=== PATIENT | male | born 1995 | race Two or more races ===

== ENCOUNTER 2024-12-27 12:39 | Emergency (ER) | payer MEDICARE, MEDICAID, SELFPAY ==
[2024-12-27 13:48] VITALS: BP 138/92; PULSE 93; RESP 18; TEMP 36.7; O2SAT 98
--- NOTE | 2024-12-27 13:54 | PD.EDADULT ---
ED General RME/HPI General Chief complaint: Abdominal Pain Stated complaint: ABD PAIN X 10 HRS Time Seen by Provider: 12/27/24 13:43 Arrival date/time: 12/27/24 12:39 CC: Epigastric pain HPI onset last night with nausea and vomiting however has had this chronically ongoing for the past 7 no months is not aware that he has gallstones. Denies fever but complains of persistent nausea vomiting no diarrhea. Related Data Home Medications ?Medication ?Instructions ?Recorded ?Confirmed furosemide 20 mg tablet 20 mg PO BID 06/17/22 06/21/22 hydroxyzine HCl 25 mg tablet 25 mg PO Q6HR PRN Anxiety 06/17/22 06/21/22 metoprolol succinate 25 mg 25 mg PO DAILY 06/17/22 06/21/22 tablet,extended release 24 hr spironolactone 25 mg tablet 25 mg PO DAILY 06/17/22 06/21/22 Previous Rx's ?Medication ?Instructions ?Recorded nitrofurantoin 100 mg PO QID #20 caps 06/23/22 monohydrate/macrocrystals 100 mg capsule (Macrobid) empagliflozin 10 mg tablet 10 mg PO QDAY #30 tabs 06/30/22 (Jardiance) ondansetron HCl 4 mg tablet 4 mg PO TID PRN nausea and 07/05/22 vomiting #20 tabs methocarbamol 750 mg tablet 750 mg PO TID #14 tabs 08/22/22 naproxen 500 mg tablet 500 mg PO BID #10 tabs 08/22/22 ibuprofen 800 mg tablet 800 mg PO TID PRN pain #30 tabs 02/06/23 amoxicillin 875 mg-potassium 1 tab PO BID #20 tabs 05/31/23 clavulanate 125 mg tablet erythromycin 5 mg/gram (0.5 %) eye 0.5 inch ophthalmic (eye) QID #3.5 05/31/23 ointment grams rizatriptan 10 mg disintegrating See Rx Instructions PO .COMPLEX 06/29/23 tablet (Maxalt-[employer]) #30 tabs ondansetron 4 mg disintegrating 4 mg PO Q8H #10 tabs 12/27/24 tablet sucralfate 1 gram tablet (Carafate) 1 g PO BID #20 tabs 12/27/24 Allergies Allergy/AdvReac Type Severity Reaction Status Date / Time No Known Allergies Allergy Verified 12/27/24 12:42 Review of Systems Review of Systems Narrative Review of Systems: GEN: No fever, no chills, no weight loss EYES: No discharge, no visual changes, no pain HEENT: No ear pain, no congestion, no sore throat PULM: No shortness of breath, no cough, no congestion CV: No chest pain, no dyspnea on exertion, no palpitations GI: No nausea, no vomiting, no diarrhea, + pain, no constipation : No frequency, no urgency, no dysuria MUSC/SKEL: No joint pain, no back pain SKIN: No rash PSYCH: No hallucinations, no depression HEME/LYMPH: No easy bleeding or bruising tendencies NEURO: No weakness, no headache Past Medical History Past Medical History NEUROLOGIC: Negative Head Trauma CARDIAC: Positive Cardiac Disorders (CHF); Negative Congestive Heart Failure RESPIRATORY: Negative Chronic Obstructive Pulmonary Disease (COPD) or Asthma GASTROINTESTINAL: Positive Cirrhosis; Negative Gastrointestinal Disorders GENITOURINARY: Negative Renal Disease or Kidney Stones ENT: Negative Head Trauma ENDOCRINE: Negative Diabetes Mellitus Type 1 or Diabetes Mellitus Type 2 HEMATOLOGIC: Negative Blood Disorders or Sickle Cell Disease OTHER HISTORY: Negative MRSA or Cancer Family History FAMILY HISTORY: Negative Family Cardiac Disorders Social History SMOKING STATUS: Current every day smoker ED Exam Narrative Physical exam: [General: Obese in mild discomfort but not in any acute distress Head normocephalic HEENT: Within acceptable limits Neck is supple nontender Chest equal chest rise nontender to palpation Respiratory: Clear to auscultation no wheezes crackles or rubs CV: Rate rhythm is regular no murmurs rubs or clicks Abdomen is distended secondary to body habitus soft epigastric and right upper quadrant tenderness no left upper quadrant tenderness with palpation no reflexive guarding or rebound tenderness. Back: No CVA tenderness no spinous process tenderness from cervical spine thoracic and lumbar spine Skin: Intact no petechiae rash induration ulceration or crepitus Extremities: Moving all extremity against resistance cap refill less than 2 seconds neurosensory intact Neuro: Awake alert oriented x3 Glascow coma 15 no focal deficits] Course Quality Measures none Orders Category Date Time Status gall bladder Stat Exams 12/27/24 13:56 Completed B-Type Natriuretic Peptide Stat Lab 12/27/24 14:17 Completed CBC Stat Lab 12/27/24 14:17 Completed Comprehensive Metabolic Panel Stat Lab 12/27/24 14:17 Completed Drug Screen,Urine Stat Lab 12/27/24 14:40 Completed Lipase Stat Lab 12/27/24 14:17 Completed Magnesium Stat Lab 12/27/24 14:17 Completed Partial Thromboplastin Time Stat Lab 12/27/24 14:17 Completed Prothrombin Time with INR Stat Lab 12/27/24 14:17 Completed Urinalysis, C/S if Indicated Stat Lab 12/27/24 14:40 Completed oxyCODONE/APAP 5/325 [Percocet 5/325] Med 12/27/24 15:09 Discontinued 1 tab PO X1 ONE Vital Signs Vital signs: Vital Signs Temperature 98.0 F 12/27/24 13:48 Pulse Rate 93 12/27/24 13:48 Respiratory Rate 18 12/27/24 13:48 Blood Pressure 138/92 H 12/27/24 13:48 Pulse Oximetry (%) 98 12/27/24 13:48 Oxygen Delivery Method Room Air 12/27/24 13:48 Discharge Plan Plan Patient Disposition: HOME (Self Care) Patient condition on transfer: Stable Prescriptions/Referrals Prescriptions/Med Rec: New ondansetron 4 mg tablet,disintegrating 4 mg PO Q8H Qty: 10 0RF sucralfate [Carafate] 1 gram tablet 1 g PO BID Qty: 20 0RF No Action rizatriptan [Maxalt[employer]] 10 mg tablet,disintegrating See Rx Instructions .ROUTE .COMPLEX Qty: 30 0RF Rx Instructions: take 1 tab at onset of headache; if no relief may repeat 1 tab after at least 2 hrs; max = 3 tabs/24 hr metoprolol succinate 25 mg tablet extended release 24 hr 25 mg PO DAILY furosemide 20 mg tablet 20 mg PO BID hydroxyzine HCl 25 mg tablet 25 mg PO Q6HR PRN (Reason: Anxiety) spironolactone 25 mg tablet 25 mg PO DAILY nitrofurantoin monohyd/m-cryst [Macrobid] 100 mg capsule 100 mg PO QID Qty: 20 0RF Rx Instructions: must administer with a meal/food Jardiance 10 mg tablet 10 mg PO QDAY Qty: 30 3RF ondansetron HCl 4 mg tablet 4 mg PO TID PRN (Reason: nausea and vomiting) Qty: 20 0RF naproxen 500 mg tablet 500 mg PO BID Qty: 10 0RF methocarbamol 750 mg tablet 750 mg PO TID Qty: 14 0RF ibuprofen 800 mg tablet 800 mg PO TID PRN (Reason: pain) Qty: 30 0RF erythromycin 5 mg/gram (0.5 %) ointment 0.5 inch ophthalmic (eye) QID Qty: 3.5 0RF amoxicillin-pot clavulanate 875-125 mg tablet 1 tab PO BID Qty: 20 0RF Referrals: Deshawn Davalos [Primary Care Provider] - In 1 week Problem List Clinical Impression: Abdominal pain, epigastric, Cholelithiasis Patient/Caregiver Discharge Instructions Education Materials: What Are Gallstones, Treating Gallstones Additional Instructions: Take the medications as prescribed avoid greasy spicy and fatty foods avoid eating food 2 hours before you go to bed. You have gallstones but your gallbladder is not infected. Your your blood work does not indicate an infection or any gross abnormalities. Follow-up with your primary care doctor. If there is a worsening of symptoms in spite of the medications and recommendations to return to the emergency room for reevaluation. Print Language: Ukrainian Stand Alone Forms: [employer] Info., Work/School Release, Patient Portal Info Letter ANISH/NIKI Supervising Physician PA/NIKI Supervising Physician: Andi Gillis ENP [facility] Clinical Information Provided by: patient Medical Records reviewed [facility] Meds/Rx considered, not ordered None Labs/Rad/Tests considered, not ordered None Chronic Illness/Social Conditions Explain: Cholelithiasis EKG EKG not done Labs Labs: interpreted by [facility] Lab(s) Interpretation(s): CBC shows no acute leukocytosis anemia thrombocytopenia Coags within acceptable limits CMP shows no significant electrolyte imbalances renal impairment no T. bili elevation. AST at 150 ALT at 99 BMP within acceptable limits Lipase at 57 Imaging Imaging interpretation: interpreted by [facility] Imaging Interpretation(s): Ultrasound shows gallstones without CBD dilatation gallbladder wall thickening that would suggest cholecystitis Medication Administration(s) Medication Administration History Discontinued Medications Oxycodone/Acetaminophen (Oxycodone/Apap 5/325 Tablet) 1 tab PO X1 ONE Stop: 12/27/24 15:10 Last Admin: 12/27/24 15:52 Dose: 1 tab Documented By: DEBI
--- NOTE | 2024-12-27 13:56 | XR_ITS ---
Examination: Abdomen sonogram, Limited Date and time of exam: December 27, 2024, 1438 hours INDICATIONS: Right upper abdominal pain epigastric pain beginning today. Technique: Real-time rodriguez scale transabdominal sonographic images of the upper abdomen obtained. Findings: Cholelithiasis, negative for cholecystitis. Normal common bile duct 0.3 cm Pancreatic head 2.9 cm Liver 17.6 cm fatty infiltration no focal liver lesions. Normal hepatopetal portal venous flow. Patent IVC. IMPRESSION: Cholelithiasis, negative for cholecystitis Moderate hepatomegaly
[2024-12-27 14:34] LABS: Basophils # (Auto) 0.1 Thou/mm3 (0.0-0.2); Basophils % (Auto) 2 % (0-2.5); Eosinophils # (Auto) 0.3 Thou/mm3 (0.0-0.5); Eosinophils % (Auto) 5 % (0-10); Hematocrit 41.9 % (41.0-53.0); Hemoglobin 13.3 g/dL (13.5-16.0); Immature Granulocytes Auto 0.01 Thou/mm3 (0.00-0.00); Lymphocytes # (Auto) 1.7 Thou/mm3 (1.0-4.8); Lymphocytes % (Auto) 28 % (10-50); Mean Corpuscular HGB Conc 31.7 g/dl (31.0-37.0); Mean Corpuscular Hemoglobin 26.1 pg (25.0-35.0); Mean Corpuscular Volume 82 fL (80-100); Monocytes # (Auto) 0.5 Thou/mm3 (0.0-0.8); Monocytes % (Auto) 8 % (0-12); Neutrophils # (Auto) 3.5 Thou/mm3 (1.8-7.7); Neutrophils % (Auto) 56 % (37-80); Nucleated Red Blood Cell # 0.00 Thou/mm3 (0.00-0.00); Nucleated Red Blood Cell % 0 /100 WBC (0); Platelet Count 259 Thou/mm3 (140-440); RDW Standard Deviation 45.3 fL (35.1-43.9); Red Blood Count 5.10 Miln/mm3 (4.50-5.90); White Blood Count 6.2 Thou/mm3 (3.8-10.6)
[2024-12-27 14:48] LABS: INR 1.0 (0.9-1.3); Partial Thromboplastin Time 25.5 Seconds (22.0-36.0); Prothrombin Time 10.5 Seconds (9.0-12.2)
[2024-12-27 14:52] LABS: Collection Type, Urine Clean Catch
[2024-12-27 14:55] LABS: B-Type Natriuretic Peptide < 20 pg/mL (0-100)
[2024-12-27 14:57] LABS: Alanine Aminotransferase 99 U/L (10-49); Albumin, Serum 4.3 gm/dL (3.5-5.0); Albumin/Globulin Ratio 1.5 (1.2-2.2); Alkaline Phosphatase 70 U/L (46-116); Anion Gap 13 (7-16); Aspartate Amino Transferase 150 U/L (0-34); BUN/Creatinine Ratio 6 Ratio (12-20); Bilirubin,Total 0.6 mg/dL (0.3-1.2); Blood Urea Nitrogen < 5 mg/dL (9-23); Calcium 9.0 mg/dL (8.3-10.6); Calcium (Corrected) 9.0 mg/dL (8.5-10.1); Carbon Dioxide 24.4 mMol/L (20.0-31.0); Chloride 104 mMol/L (98-107); Creatinine (Component) 0.8 mg/dL (0.6-1.3); Globulin 2.8 gm/dL (2.3-3.5); Glucose 96 mg/dL (74-106); Lipase 57 U/L (12-53); Magnesium 2.3 mg/dL (1.6-2.6); Osmolality,Calculated 278 (275-295); Potassium 3.8 mMol/L (3.4-5.1); Sodium 141 mMol/L (136-145); Total Protein 7.1 gm/dL (5.7-8.2); eGFR > 60 See Note
[2024-12-27 15:02] LABS: Bilirubin,Urine Negative (Negative); Blood,Urine Negative (Negative); Clarity,Urine Clear (Clear/Hazy); Color,Urine Lt-Yellow (Lt Yel-Yel); Culture Indicated,Urine Not Indicated; Glucose, Urine 4+ (Negative); Ketones,Urine Negative (Negative); Leukocyte Esterase,Urine Negative (Negative); Nitrite,Urine Negative (Negative); PH,Urine 6.0 (5.0-7.0); Protein,Urine Negative (Neg - Trace); RBC,Urine < 1 /hpf (0-3); Specific Gravity,Urine 1.007 (1.001-1.035); Squamous Epithelial Cell,Urine < 1 /hpf (0-5); Urobilinogen,Urine Negative mg/dL (0.0-1.0); WBC,Urine < 1 /hpf (0-5)
[2024-12-27 15:12] LABS: Amphetamine/Methamp Scrn,U Negative (Negative); Barbiturate Screen,Urine Negative (Negative); Benzodiazepines Screen,Urine Negative (Negative); Benzoylecgonine Screen, Ur Negative (Negative); Fentanyl Screen,Urine Negative (Negative); Opiate Screen,Urine Positive (Negative); THC Screen,Urine Negative (Negative)
== END 2024-12-27 17:59 | disposition home or self-care (01) ==
PROVIDERS: Registered Nurse General Practice; Emergency Provider Family Medicine; PCP Physician Assistant
DX: K80.20 Calculus of gallbladder without cholecystitis without obstruction (principal)
CPT/HCPCS: 36415; 76705; 80053; 80307; 81001; 83690; 83735; 83880; 85025; 85610; 85730; 99283; A9270